=== PATIENT | male | born 1960 | race Caucasian/White ===

== ENCOUNTER 2017-03-31 15:44 | Observation (INO) | payer OTHER ==
--- NOTE | ~2017-03-31 | HP ---
History And Physical [id number] [place]. [address] NAME: GERARD SOSA : 62 STATUS : ADM Chente PAT#: [id number] AGE: 56 ADM/REG DATE : 03/31/17 MR#: [id number] REPORT SERV DATE: 03/31/17 DICTATED BY: DINORAH RAMIREZ DATE: 03/31/17 REPORT STATUS : Draft TRANSCRIBED BY: MODL DATE: 03/31/17 DATE OF ADMISSION: 03/31/2017 HISTORY OF PRESENT ILLNESS: Mr. Sosa, a 56-year-old white male, has had episodes of intense chest pain and pain between the shoulder blades radiating through to the chest associated with shortness of breath, dizziness, and fatigue. He has also had episodes of palpitations. He is disabled due to chronic back pain. 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 His creatinine at baseline is around 1.39 on background meloxicam alternating with diclofenac. Also takes hydrocodone p.r.n. There is a family history for heart disease, and he continues to smoke. He obtained an outpatient CTA of the chest with attention to coronaries earlier today. Received 120 mL of dye. He was found to have a critical lesion in his proximal LAD. The patient was called and instructed to return to the cardiac short stay in preparation for possible heart catheterization in the morning. PAST MEDICAL HISTORY: As outlined above. ALLERGIES: NONE. MEDICATIONS: At home include: Gleevec 100 mg daily, HCTZ 25 mg daily, hydrocodone 7.5/acetaminophen 325 mg one tablet every 6 hours as needed, Imdur 30 mg daily, lisinopril 20 mg daily, baby aspirin daily, and Prilosec 20 mg daily. SOCIAL HISTORY: Current smoker. FAMILY HISTORY: Positive for heart disease. PAST SURGICAL HISTORY: As listed above. REVIEW OF SYSTEMS: Otherwise all negative. PHYSICAL EXAMINATION: VITAL SIGNS: Blood pressure is 150 systolic, heart rate is in the 70s. GENERAL: The patient is a comfortable-appearing white male, alert and oriented x3, in no distress. HEENT: Pupils are equal, round, and reactive to light and accommodation. Extraocular muscles are intact. NECK: Supple. Trachea midline. No carotid bruits. CHEST: Clear. HEART: PMI midclavicular line. Regular rate and rhythm. No significant murmur. ABDOMEN: Soft, nontender. History And Physical [address] [address] NAME: GERARD SOSA : 62 STATUS : ADM Chente PAT#: [id number] AGE: 56 ADM/REG DATE : 03/31/17 MR#: [id number] REPORT SERV DATE: 03/31/17 DICTATED BY: DINORAH RAMIREZ DATE: 03/31/17 REPORT STATUS : Draft TRANSCRIBED BY: MODLina DATE: 03/31/17 EXTREMITIES: No clubbing, cyanosis, or edema. NEURO: Nonfocal. DATA: EKG and blood work are pending. CT scan results from earlier today, as mentioned above showing a critical lesion in his proximal LAD. CLINICAL IMPRESSIONS: 1. Unstable angina. 2. Chronic kidney disease, with a pre-CAT scan creatinine this morning of 1.5. Again, the patient received 120 mL of dye. 3. Hypertension. 4. Dyslipidemia. 5. Smoking. PLAN: 1. We will plan a heart catheterization in the morning if his creatinine is not any worse. 2. We will give him IV fluids tonight and likely ask Nephrology for their advice, we will hold his KM inhibitor and hold his HCTZ. 3. Hypertension. We are going to start metoprolol 25 mg twice daily and increase Imdur to 30 mg twice a day. 4. We will start Lipitor 40 mg at bedtime. 5. Smoking cessation is critical. The patient will be given baby aspirin and heparin drip per cardiac protocol and hopeful for heart catheterization in the morning. NITAF/RICKEY Dinorah Ramirez M.D. / [id number] CC: Catarino Ramsey MD
[~2017-03-31 15:44] MED LIST: GLEEVEC 100 MG PO; HYDROCHLOROT25 MG PO; KAPIDEX60 MG PO; MOBIC15 MG PO; NORCO1 TA2 PO; ZESTRIL20 MG PO
[2017-03-31 17:09] LABS: BASOPHILS 0.6 %; BASOPHILS ABSOLUTE 0.04 10/3/uL (0.0-0.16); EOSINOPHILS 7.1 %; EOSINOPHILS ABSOLUTE 0.47 10/3/uL (0.0-0.53); HEMATOCRIT 37.6 % (40.0-51.0); HEMOGLOBIN 13.5 g/dL (13.6-17.8); IMMATURE GRANULOCYTES 0.2 %; IMMATURE GRANULOCYTES ABSOLUTE 0.01 10/3/uL (0.0-0.11); LYMPHOCYTES 23.2 %; LYMPHOCYTES ABSOLUTE 1.53 10/3/uL (0.67-4.30); MANUAL DIFF NO %; MEAN CORPUS HGB CONC 35.9 g/dL (32.0-36.0); MEAN CORPUSCULAR HEMOGLOB 32.3 pg (26.0-34.0); MEAN PLATELET VOLUME 10.4 fL (9.2-13.0); MONOCYTES 7.7 %; MONOCYTES ABSOLUTE 0.51 10/3/uL (0.21-1.20); NEUTROPHILS 61.2 %; NEUTROPHILS ABSOLUTE 4.04 10/3/uL (2.02-8.40); PLATELET COUNT 157 10/3/uL (150-400); RBC DISTRIBUTION WIDTH 12.7 % (12.0-16.0); RED CELL COUNT 4.18 10/6/uL (4.7-6.1); WHITE BLOOD CELLS 6.6 10/3/uL (4.5-10.5)
[2017-03-31 17:16] LABS: PARTIAL THROMBO TIME 26.9 SEC (22.5-37.2)
[2017-04-01 05:57] LABS: BASOPHILS 0.8 %; BASOPHILS ABSOLUTE 0.05 10/3/uL (0.0-0.16); EOSINOPHILS 8.1 %; EOSINOPHILS ABSOLUTE 0.48 10/3/uL (0.0-0.53); HEMATOCRIT 36.4 % (40.0-51.0); HEMOGLOBIN 12.9 g/dL (13.6-17.8); IMMATURE GRANULOCYTES 0.2 %; IMMATURE GRANULOCYTES ABSOLUTE 0.01 10/3/uL (0.0-0.11); LYMPHOCYTES 25.4 %; MEAN CORPUS HGB CONC 35.4 g/dL (32.0-36.0); MEAN CORPUSCULAR VOLUME 90.3 fL (80-100); MEAN PLATELET VOLUME 9.8 fL (9.2-13.0); MONOCYTES 6.4 %; MONOCYTES ABSOLUTE 0.38 10/3/uL (0.21-1.20); NEUTROPHILS 59.1 %; NEUTROPHILS ABSOLUTE 3.49 10/3/uL (2.02-8.40); PLATELET COUNT 143 10/3/uL (150-400); RBC DISTRIBUTION WIDTH 12.5 % (12.0-16.0); RED CELL COUNT 4.03 10/6/uL (4.7-6.1); WHITE BLOOD CELLS 5.9 10/3/uL (4.5-10.5)
[2017-04-01 05:59] LABS: MANUAL DIFF NO %
[2017-04-01 06:12] LABS: A/G RATIO 1.2 (0.7-1.9); ALBUMIN 3.2 G/DL (3.5-5.0); CALCIUM, SERUM 8.3 MG/DL (8.5-10.4); CHLORIDE, SERUM 106 MMOL/L (96-112); CO2 (CARBON DIOXIDE) 28 MMOL/L (24-34); CREATININE 1.25 MG/DL (0.70-1.30); GFR AFRICAN AMERICAN 75 ML/MIN (>=60); GFR NON AFRICAN AMERICAN 64 ML/MIN (>=60); GLOBULIN 2.6 G/DL (2.5-4.1); GLUCOSE, SERUM 149 MG/DL (60-99); POTASSIUM, SERUM 3.8 MMOL/L (3.5-5.3); SGOT(AST) 14 U/L (5-40); SGPT(ALT) 23 U/L (5-65); SODIUM, SERUM 141 MMOL/L (135-148); TOTAL BILIRUBIN 0.6 MG/DL (0-1.2); TOTAL PROTEIN 5.8 G/DL (6.0-8.5)
[2017-04-01 06:14] LABS: ALKALINE PHOSPHATASE 67 U/L (45-117); BUN (BLOOD UREA NITROGEN) 14 MG/DL (6-23); INTERNATIONAL NORMAL RATI 1.1 UNITS (-); PROTIME (NOT ORD) 13.8 SEC (12.0-14.5)
[2017-04-01 06:46] LABS: PARTIAL THROMBO TIME 39.6 SEC (22.5-37.2)
[2017-04-01] MEDS ORDERED: PRILOSEC40 MG PO (14:32)
[2017-04-01] MEDS ORDERED: REFRES1 (14:33)
[2017-04-01] MEDS ORDERED: IMDUR30 PO (14:41)
[2017-04-02 04:51] LABS: BASOPHILS 0.5 %; BASOPHILS ABSOLUTE 0.04 10/3/uL (0.0-0.16); EOSINOPHILS ABSOLUTE 0.37 10/3/uL (0.0-0.53); HEMOGLOBIN 14.4 g/dL (13.6-17.8); IMMATURE GRANULOCYTES 0.4 %; IMMATURE GRANULOCYTES ABSOLUTE 0.03 10/3/uL (0.0-0.11); LYMPHOCYTES 18.1 %; LYMPHOCYTES ABSOLUTE 1.35 10/3/uL (0.67-4.30); MEAN CORPUS HGB CONC 34.4 g/dL (32.0-36.0); MEAN CORPUSCULAR HEMOGLOB 31.2 pg (26.0-34.0); MEAN CORPUSCULAR VOLUME 90.7 fL (80-100); MONOCYTES 5.4 %; NEUTROPHILS 70.6 %; NEUTROPHILS ABSOLUTE 5.25 10/3/uL (2.02-8.40); PLATELET COUNT 154 10/3/uL (150-400); RBC DISTRIBUTION WIDTH 12.6 % (12.0-16.0); RED CELL COUNT 4.62 10/6/uL (4.7-6.1); WHITE BLOOD CELLS 7.4 10/3/uL (4.5-10.5)
[2017-04-02 04:54] LABS: HEMATOCRIT 41.9 % (40.0-51.0); MANUAL DIFF NO %
[2017-04-02 05:02] LABS: BUN (BLOOD UREA NITROGEN) 13 MG/DL (6-23); CHLORIDE, SERUM 107 MMOL/L (96-112); CO2 (CARBON DIOXIDE) 27 MMOL/L (24-34); CREATININE 1.18 MG/DL (0.70-1.30); GFR AFRICAN AMERICAN 80 ML/MIN (>=60); GFR NON AFRICAN AMERICAN 69 ML/MIN (>=60); GLUCOSE, SERUM 130 MG/DL (60-99); POTASSIUM, SERUM 4.1 MMOL/L (3.5-5.3); SODIUM, SERUM 142 MMOL/L (135-148)
[2017-04-02] MEDS ORDERED: LIPITOR40 PO (10:49)
[2017-04-02] MEDS ORDERED: LOP25 PO (10:50)
[2017-04-02] MEDS ORDERED: PLAVIX PO (10:50)
[2017-04-02] MEDS ORDERED: ASAB PO (10:50)
[2017-04-02] MEDS ORDERED: NTG150 SL (10:51)
== END 2017-04-02 13:50 | disposition home or self-care (01) ==
LOC: SSU1 15:44
PROVIDERS: Internal Medicine Interventional Cardiology
DX: I25.110 Atherosclerotic heart disease of native coronary artery with unstable angina pectoris (principal); I12.9 Hypertensive chronic kidney disease with stage 1 through stage 4 chronic kidney disease, or unspecified chronic kidney disease; N18.3 Chronic kidney disease, stage 3 (moderate); E78.5 Hyperlipidemia, unspecified; F17.210 Nicotine dependence, cigarettes, uncomplicated; Z79.82 Long term (current) use of aspirin; Z79.891 Long term (current) use of opiate analgesic; Z79.899 Other long term (current) drug therapy; Z82.49 Family history of ischemic heart disease and other diseases of the circulatory system; Z98.890 Other specified postprocedural states
CPT/HCPCS: 80048; 80053; 82962; 85025; 85610; 85730; 93005; 93458; 96372; 99152; 99153; A9270-GY; C1713; C1725; C1760; C1769; C1874; C1887; C9600; G0378; J0583; J2250; J3010; Q9967